=== PATIENT | male | born 2000 | race Caucasian/White ===

== ENCOUNTER 2023-04-12 13:17 | Outpatient (AMB) | payer OTHER, SELFPAY ==
--- NOTE | 2023-04-12 14:23 | AM.OFFWIN_ITS ---
Intake Vital Signs 04/12/23 14:24 Height 5 ft 8 in Weight 91.172 kg BMI 30.6 BP 110/70 Blood Pressure Location Rt brachial Position Sitting Pulse 54 Pulse Source Pulse Oximeter Temp 98.2 F Temp Source Temporal Artery Scan Pulse Oximetry (%) 98 Oxygen Delivery Method Room Air Intake Visit Reasons: EP runny nose sore throat congestion headache Intake Note: Patient here for possible sinus infection. He has been experiencing runny nose, congestion, sore throat, post nasal drip and eyes appear to be sightly red and slight headache. Patient Tobacco Use Status: Never used Tobacco Allergies amoxicillin Adverse Reaction (Mild, Verified 04/12/23 14:26) unknown Penicillins Adverse Reaction (Mild, Verified 04/12/23 14:26) unknown Do you need a note to return to daycare/school/sports/work: No HPI HPI Comments History of Present Illness Details 22-year-old male presents with dark gree n to brown nasal drainage, headaches, sinus pressure, fevers, chills, bilateral ear pain, and ulcerations throughout his mouth. He states that he has had the symptoms for over a week, has taken multiple [id number] medications with poor effect. [facility] Patient Tobacco Use Status: Never used Tobacco Review of Systems Const Details: Constitutional: No Fever, No Chills ENT/Mouth: Positive bilateral Ear Pain, No Hoarseness, positive sore throat, positive oral ulcerations Eyes: Positive bilateral eye drainage, No Eye Pain, No Swelling, No Redness, No Foreign Body Cardiovascular: No Chest Pain, No SOB Respiratory: Positive Cough, No Dyspnea Gastrointestinal: No Nausea, No Vomiting, No Diarrhea, No abdominal Pain Genitourinary: No Dysuria, No Hematuria Musculoskeletal: No joint pain, No Myalgias, No Joint Swelling Skin: No Skin lacerations, No rash Neuro: No Weakness, No Dizziness, No Headache All systems reviewed & are unremarkable except as noted in HPI and below Physical Exam Vital Signs: Last Vital Signs Temp 98.2 F 04/12/23 14:24 Pulse 54 04/12/23 14:24 BP 110/70 04/12/23 14:24 Pulse Ox 98 04/12/23 14:24 Oxygen Delivery Method Room Air 04/12/23 14:24 BMI result Body Mass Index 30.6 Appearance: Alert. Oriented X3. Mild distress secondary to pain. Eyes: Pupils equal, round and reactive to light. EOMI. Exudates noted to the upper lids, no conjunctivitis noted. ENT: Pharynx ulcerated, ulcerations throughout the buccal mucosa and uvula. Sinus tenderness noted to minimal pressure to the frontal ethmoid sinuses. Cerumen noted to both canals. Canals are intact. no mastoid tenderness noted. Green nasal drainage noted. Neck: Normal inspection. Neck supple. No cervical lymphadenopathy. No nuchal rigidity. No vertebral tenderness. CVS: Normal heart rate and rhythm. Pulses normal. Respiratory: No respiratory distress. Breath sounds normal. Abdomen: Soft and nontender. Skin: No rashes noted. Skin warm and dry. Normal skin color. Normal skin turgor. Extremities: Gait well-balanced well coordinated. Neuro: No motor deficit. No sensory deficit. 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 Patient's presentation is consistent with sinusitis and herpetic stomatitis. He has been taking medications [id number] with poor effect. He is able to eat and drink without difficulty and physical exam does not indicate mastoiditis, epiglottitis, or peritonsillar abscess. Patient does not report to be immunocompromised, and is not on any chemotherapeutic. Plan of care is to treat for sinusitis with Augmentin, as well as herpetic stomatitis with valacyclovir. Supportive measures with Tylenol, Motrin, rest, and plenty of fluids. Patient verbalized understanding of discharge instructions. Verbalized understandings of signs and symptoms indicating need for emergent intervention. Orders: Orders SARS-CoV2/FLU/RSV Today R09.89 - Other specified symptoms and signs involving the circulatory and respiratory systems AMB Rapid Strep Screen Today Z13.9 - Encounter for screening, unspecified Medications: New amoxicillin-pot clavulanate 875-125 mg 1 tab PO Q12H 10 days 20 tabs 0RF valacyclovir 1,000 mg PO TID 7 days 21 tabs 0RF Patient Instructions: You were evaluated for upper respiratory symptoms and ulcerations throughout your mouth. You are being treated for sinusitis and herpetic stomatitis. For sinusitis, take Augmentin 875 mg every 12 hours for the next 7 days. For herpetic stomatitis, take valacyclovir 1000 mg every 8 hours for the next 7 days. Alternate Tylenol 650 mg every 6 hours and Motrin 600 mg every 6 hours as needed for pain and fever management. Consider taking these medications 3 hours apart so you have pain and fever management every 3 hours. Write down what time you take these medications to prevent accidental overdose. Motrin is the same medication as Advil and ibuprofen. Tylenol is the same medication as acetaminophen. Drink plenty of fluids. Rest. Thank you for choosing this urgent care for evaluation. Please follow-up with primary care physician as needed. Return to the emergency department for any new, concerning, or worsening symptoms. Coding Level of Care Code Est Pt Level 3 (29269) Diagnoses Sinusitis J32.9 Stomatitis herpetiformis K12.0
[2023-04-12 14:24] VITALS: BP 110/70; PULSE 54; TEMP 36.8; O2SAT 98; BMI 30.6
== END 2023-04-12 14:53 | disposition home or self-care (01) ==
PROVIDERS: Visit Provider Nurse Practitioner Family
DX: J32.9 Chronic sinusitis, unspecified (principal); K12.0 Recurrent oral aphthae; J02.9 Acute pharyngitis, unspecified
CPT/HCPCS: 87880; 99051; 99213

== ENCOUNTER 2023-04-12 14:39 | Outpatient (REF) | payer OTHER, SELFPAY ==
[2023-04-12 16:06] LABS: Influenza A PCR NEGATIVE (Negative); Influenza B PCR NEGATIVE (Negative); Resp Syncy Virus RNA Qual PCR NEGATIVE (Negative); SARS COV2 PCR INHOUSE NEGATIVE (Negative)
== END 2023-04-12 14:40 | disposition home or self-care (01) ==
LOC: HO.LNP 14:39
PROVIDERS: Visit Provider Nurse Practitioner Family
DX: Z11.52 Encounter for screening for COVID-19 (principal); Z20.822 Contact with and (suspected) exposure to COVID-19; R09.89 Other specified symptoms and signs involving the circulatory and respiratory systems
CPT/HCPCS: 0241U

== ENCOUNTER → 2023-11-04 09:01 | Outpatient (BNVA) | payer SELFPAY | PROVIDERS: Visit Provider Physician Assistant Medical | DX: Z02.79 Encounter for issue of other medical certificate (principal) ==

== ENCOUNTER 2024-06-17 09:11 | Emergency (ER) | payer OTHER, SELFPAY ==
--- NOTE | ~2024-06-17 | XR_ITS ---
EXAMINATION: XR LUMBOSACRAL SPINE CLINICAL INFORMATION: back pain s/p basketball game COMPARISON: None available. TECHNIQUE: Three views of the lumbosacral spine. FINDINGS: No scoliosis. Normal lordosis. No fracture, compression deformity, or suspicious bone lesion. No subluxations. 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 Minimal disc space narrowing noted at L4-5 and L5-S1. Normal facet alignment. No soft tissue abnormalities. XR/XR lumbar spine 2-3V IMPRESSION: No acute findings lumbar spine. Electronically signed by: Salomon Gleason MD 06/17/2024 11:11 AM [facility]
[2024-06-17 09:17] VITALS: BP 132/69; PULSE 64; RESP 18; TEMP 36.3; O2SAT 98; BMI 31.3
--- NOTE | 2024-06-17 11:26 | ED_ITS ---
HPI - General Adult General Chief complaint: Back Pain/Injury Stated complaint: back pain Time Seen by Provider: 06/17/24 11:23 Source: patient Mode of arrival: ambulatory Limitations: no limitations History of Present Illness ED Provider: Ary Del Cid PA-C HPI narrative: Patient is a 23 year old assigned male at with a history of back pain presenting to the emergency department today with acute on chronic back pain. Patient states that over the last 5 years he has had intermittent back pain and has not seen a specialist. Patient states that he was playing basketball over this last weekend and has had pain in his back ever since. Patient denies any dizziness, lightheadedness, abdominal pain, nausea, vomiting, fever, chills, blurry vision, double vision, loss of vision, chest pain, difficulty breathing, shortness of breath, night sweats, pain with urination, increased urinary frequency, increased urinary urgency, blood in his urine or stool, syncope or a near syncopal episode, bowel incontinence, bladder incontinence, or any other complaints at this time. Location: back Relieving factors: none Exacerbating factors: movement Associated symptoms: denies other symptoms Treatments prior to arrival: none Related Data Previous Rx's ?Medication ?Instructions ?Recorded doxycycline monohydrate 100 mg 100 mg PO BID 10 days #20 caps 04/12/23 capsule valacyclovir 1 gram tablet 1,000 mg PO TID 7 days #21 tabs 04/12/23 cyclobenzaprine 5 mg tablet 5 mg PO TID PRN low back pain 7 06/17/24 days #21 tabs prednisone 20 mg tablet 20 mg PO DAILY 7 days #7 tabs 06/17/24 Allergies Allergy/AdvReac Type Severity Reaction Status Date / Time amoxicillin AdvReac Mild unknown Verified 06/17/24 09:19 Penicillins AdvReac Mild unknown Verified 06/17/24 09:19 Review of Systems Constitutional: Constitutional: Reports no additional constitutional complaint s, Denies chills, Denies fever(s) and Denies night sweats Eyes: Eyes: Reports no additional eye complaints, Denies blurry vision, Denies change in vision, Denies diplopia, Denies eye discharge, Denies loss of vision and Denies eye pain ENT: Denies dizziness Cardiovascular: Cardiovascular: Reports no additional cardiovascular complaints, Denies chest pain, Denies lightheadedness, Denies Loss of Consciousness and Denies dyspnea Respiratory: Respiratory: Reports no additional respiratory complaints and Denies dyspnea Gastrointestinal: Gastrointestinal: Reports no additional gastrointestinal complaints, Denies abdominal pain, Denies melena, Denies hematochezia, Denies change in bowel habits and Denies change in stool character Genitourinary: Genitourinary: Reports no additional male genitourinary complaints, Denies hematuria, Denies oliguria, Denies difficulty urinating, Denies dysuria, Denies urinary frequency, Denies urinary hesitancy, Denies urinary incontinence and Denies urinary urgency Musculoskeletal: Musculoskeletal: Reports no additional musculoskeletal complaints, Reports back pain, Denies numbness and Denies tingling Neurologic: Denies dizziness, Denies loss of vision, Denies numbness and D enies tingling Psychiatric: Psychiatric: Reports no additional psychiatric complaints Endocrine: Endocrine: Reports no additional endocrine complaints Hematologic/Lymphatic: Hematologic/Lymphatic: Reports no additional hematologic/lymphatic complaints Allergic/Immunologic: Allergic/Immunologic: Reports no additional allergic/immunologic complaints PMFSH Past Medical History Attestation statement: The following information was validated with the patient. Source: old records reviewed and nursing notes reviewed Social History Social History Patient Tobacco Use Status: Never used Tobacco Advance Directives: No Advance Directives Information Provided: Yes Physical Exam ED Vital Signs: Vital Signs - 24 hr 06/17/24 09:17 06/17/24 11:53 Temperature 97.4 F 97.4 F Pulse Rate 64 64 Respiratory Rate 18 18 Blood Pressure 132/69 132/69 Pulse Oximetry 98 98 Oxygen Delivery Method Room Air Room Air BMI result Body Mass Index 31.3 Const General: cooperative, no acute distress, alert and awake Nutritional Appearance: well nourished Orientation/consciousness: patient oriented x3 Limitations: no limitations HENMT Head: Yes normal to inspection and Yes atraumatic Ears: hearing grossly normal bilaterally and external ears normal General nose exam: Normal external nose present, no nasal discharge noted and no epistaxis Face and sinus: Yes normal facial exam, No abrasion and No laceration Mouth: Normal oral and palatal mucosa present, no drooling and no muffled voice Eyes General: appearance normal, both eyes and all related structures Periorbital: periorbital findings normal Eyelids: Yes eyelids normal Conjunctivae: conjunctivae normal Pupils: Equal, round and reactive pupils present EOM: EOMs intact bilaterally Neck Neck: Yes normal visual inspection, Yes full ROM and Yes no lymphadenopathy Chest Chest palpation & inspection: normal inspection of the chest Resp Effort & Inspection: normal respiratory effort and able to speak in complete sentences GI Inspection: Yes normal to inspection Neuro General: patient oriented x3 and moves all extremities Cranial nerves: Yes Equal, round and reactive pupils present Cognition (Neuro): normal cognition Extrem General: Yes normal to inspection, Yes full ROM and Yes capillary refill normal Psych Appearance: grossly normal Mental Status: mental status grossly normal Affect: normal affect Attitude: cooperative Thought process: Normal thought process present Thought content: Normal thought content present Insight: Good insight present (Psych) Medical Decision Making Medical Decision Making MDM Narrative: Patient is a 23 year old assigned male at with a history of back pain presenting to the emergency department today with acute on chronic back pain. Patient's physical exam was unremarkable. Patient's lumbar x-ray showed no acute process. I explained my physical exam findings as well as all test results to the patient. I answered all questions asked by the patient. I stressed the importance of the patient taking his medication as directed (either prescribed or as the over the counter packaging recommends). I stressed the importance of the patient following up with his primary care provider and a aviation technical systems specialist. I stressed the importance of the patient returning to the emergency department immediately if his symptoms were to worsen or if he were to develop any dizziness, shortness of breath, difficulty breathing, chest pain, blurry vision, loss of vision, nausea, vomiting, abdominal pain, fever, chills, back pain, or any other complaints. Patient verbalized agreement and understanding with this treatment plan and discharge. Differential Diagnosis Differential Diagnoses: The differential diagnosis associated with the presentation includes Low back pain Acute on chronic low back pain Lumbar strain Lumbar sprain Admission/Observation Consideration of admission/observation: Escalation of care including admission/observation considered Patient would have been admitted to the hospital had his work up had any findings where hospital admission was appropriate and his clinical presentation warranted hospital admission. Independent Interpretation I performed an independent interpretation of an: Plain X-Ray Interpretation: My interpretation is in agreement with the radiologist's impression of this imaging study. EXAMINATION: XR LUMBOSACRAL SPINE CLINICAL INFORMATION: back pain s/p basketball game COMPARISON: None available. TECHNIQUE: Three views of the lumbosacral spine. FINDINGS: No scoliosis. Normal lordosis. No fracture, compression deformity, or suspicious bone lesion. No subluxations. 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 Minimal disc space narrowing noted at L4-5 and L5-S1. Normal facet alignment. No soft tissue abnormalities. XR/XR lumbar spine 2-3V IMPRESSION: No acute findings lumbar spine. Electronically signed by: Salomon Gleason MD 06/17/2024 11:11 AM EST Dictated By: Salomon Gleason MD Signed By: Electronically signed by Salomon Gleason MD 06/17/24 1111 Radiology Impression Discussion of test interpretation with radiology: I have reviewed the radiologist's reading. Prescription Management I considered prescription management with: Pain Medication (patient prescribed pain medication) Discharge Plan Discharge Clinical Impression: Low back pain Patient Disposition: Home, Self-Care Instructions: Chronic Back Pain (DC) Additional Instructions: Follow up with your primary care provider and a aviation technical systems specialist. Return to the emergency department immediately if your symptoms worsen or if you develop any dizziness, shortness of breath, difficulty breathing, chest pain, blurry vision, loss of vision, nausea, vomiting, abdominal pain, fever, chills, back pain, or any other complaints. Prescriptions: New prednisone 20 mg tablet 20 mg PO DAILY 7 Days Qty: 7 0RF cyclobenzaprine 5 mg tablet 5 mg PO TID PRN (Reason: low back pain) 7 Days Qty: 21 0RF No Action valacyclovir 1 gram tablet 1,000 mg PO TID 7 Days Qty: 21 0RF doxycycline monohydrate 100 mg capsule 100 mg PO BID 10 Days Qty: 20 0RF Referrals: [facility] [place] [facility] [Provider Group] (Call to establish and follow up with a primary care provider. If you already have a primary care provider, please follow up with them.) [facility] [Provider Group] (Call to establish and follow up with a primary care provider. If you already have a primary care provider, please follow up with them.) [facility] [place] Primary [facility] [Provider Group] (Call to establish and follow up with a primary care provider. If you already have a primary care provider, please follow up with them.) [facility] [Provider Group] (Call to establish and follow up with a aviation technical systems specialist.) [facility] [Provider Group] (Call to establish and follow up with a aviation technical systems specialist.) Stand Alone Forms: Work/School Release Interventions: ED Discharge Assessment Last Done: 06/17/24 11:53 Discharge Date/Time: 06/17/24 11:54 Print Language: Sinhala
[2024-06-17 11:53] VITALS: BP 132/69; PULSE 64; RESP 18; TEMP 36.3; O2SAT 98
--- OUTSIDE RECORDS SUMMARY | 2024-06-17 15:33 | XMS_ITS | Data Portability ---
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 riky Not available 02/18/2022 16:41:25 07/17/2022 07/17/2022 This service was provided using telemedicine. Patient consented to video & audio visit Patient was located in the [facility]. Provider was located in the office. No other persons participated in the telemedicine visit except for the patient unless otherwise indicated here. {{}} Total time of visit was 20 minutes. riky Not available 07/17/2022 18:10:49 Plan of Treatment Reminders Order Date Submit Date Provider Last Modified By Organization Details Last Modified Time Details Appointments URGENT 2024 09:00A M Jose Manuel Pierce MD Not available Not available Not available Lab RPR (rapid plasma reagin ), titer, serum 2021 [facility], [address], [address], [place], [address], 03/03/2022 12:25:43 HIV 1+2 AB + HIV 1 p24 Ag, qualit ative immuno assay, serum 2021 [facility], [address], [address], [place], [address], 03/02/2022 10:39:55 HBsAg (hepat itis B surfac e Ag), serum 2021 [facility], [address], [address], [place], [address], 03/03/2022 10:42:39 hbcab (hepat itis B core Ab) igm, serum 2021 [facility], [address], [address], [place], [address], 03/03/2022 12:25:42 CT + NG DNA, PCR, urine 2021 [facility], [address], [address], [place], [address], 03/05/2022 11:26:34 hepati tis C virus Ab, serum 2021 [facility], [address], [address], [place], [address], 03/03/2022 12:25:41 lipid panel, serum 2021 [facility], [address], [address], [place], [address], 03/01/2022 17:58:34 CBC w/ auto diff 2021 [facility], [address], [address], [place], [address], 03/01/2022 15:46:25 CMP, serum or plasma 2021 [facility], [address], [address], [place], [address], 03/01/2022 17:58:33 TSH, serum or plasma 2021 [facility], [address], [address], [place], [address], 03/01/2022 18:03:45 CBC w/ auto diff 2022 023 [facility], [address], [place], [address], 06/05/2022 20:35:02 Referral mental health counse chemo referr al 2021 022 [email or web address] Not available 02/19/2022 08:40:41 physic al therap ist referr al - Please see for should er painTo eric # of Visits : ` 2023 024 [email or web address] Not available 03/04/2024 09:32:22 Procedures None record ed. Surgeries None record ed. Imaging XR, should er 2023 024 [email or web address] [facility], [address] [place], [address], 09/06/2023 09:52:15 Medication Orders sertra line 50 mg tablet [id number] [place] [address] [id number], [address] [place], [place], [id number], 09/06/2023 09:29:50 meloxi cam 15 mg tablet 2023 024 [id number], [address], [place], [id number], 09/06/2023 09:48:45 Patient TargetsNo targets recorded. Patient Instructions Encounter Date Encounter Id Patient Instructions Last Modified By Organization Details Last Modified Time 05/31/2020 [id number] back care and preventing injuries: care instructions [email or web address] Not available 05/31/2020 15:12:02 low back pain: exercises [email or web address] Not available 05/31/2020 15:12:02 06/05/2022 [id number] Well Visit, Ages 18 to 65: Care Instructions [email or web address] Not available 06/05/2022 14:31:03 starting a weigh t loss plan: care instructions [email or web address] Not available 06/05/2022 14:31:03 09/06/2023 [id number] shoulder bursitis: exercises [email or web address] Not available 09/06/2023 09:48:39 rotator cuff: exercises [email or web address] Not available 09/06/2023 09:48:39 rotator cuff injury: care instructions [email or web address] Not available 09/06/2023 09:48:39 Reason for Referral Mental Health Counselor Refe rral for Dysthymia Referring Physician: Gonzalo Amezquita [facility], Encounter Date: 02/18/2022 Physical Therapist Referral for Injury of tendon of the rotator cuff of shoulder Please see for shoulder painTotal # of Visits: ` Referring Physician: Gonzalo Amezquita [facility], Encounter Date: 09/06/2023 Results Created Date Observation Date Name Description Value Unit Range Abnormal Flag Note LastModifiedBy Organization Detail LastModifiedTime 03/01/2003/01/2022 COMPL ETE CBC WITH DIFF results Test not perfo rmed, speci men clott ed Not Available [facility] [address] [place], [address], 03/01/2022 15:46:25 03/01/20 22 03/01/2022 COMPR EHENS TIESHA METAB OLIC PANL glucose 91 mg/dL (70-99 ) Not Available [facility] [address] [place], [address], 03/01/2022 17:58:33 03/01/2003/01/2022 COMPR EHENS TIESHA METAB OLIC PANL BUN 12 mg/dL (6-20) Not Available [facility] [address] [place], [address], 03/01/2022 17:58:33 03/01/20 22 03/01/2022 COMPR EHENS TIESHA METAB OLIC PANL creatinine 1.1 mg/dL (0.7-1 .2) Not Available [facility] [address] [place], [address], 03/01/2022 17:58:33 03/01/20 03/01/2022 COMPR EHENS TIESHA METAB OLIC PANL sodium 141 mmol/ L (133-1 45) Not Available [facility] [address] [place], [address], 03/01/2022 17:58:33 03/01/20 22 03/01/2022 COMPR EHENS TIESHA METAB OLIC PANL potassium 4.7 mmol/ L (3.6-5 .2) Not Available [facility] [address] [place], [address], 03/01/2022 17:58:33 03/01/20 22 03/01/2022 COMPR EHENS TIESHA METAB OLIC PANL chloride 104 mmol/ L (98-10 7) Not Available [facility] [address] [place], [address], 03/01/2022 17:58:33 03/01/20 22 03/01/2022 COMPR EHENS TIESHA METAB OLIC PANL bicarbonate 28 mmol/ L (22-29 ) Not Available [facility] [address] [place], [address], 03/01/2022 17:58:33 03/01/20 22 03/01/2022 COMPR EHENS TIESHA METAB OLIC PANL anion gap 9 (4-17) Not Available [facility] [address] [place], [address], 03/01/2022 17:58:33 03/01/20 22 03/01/2022 COMPR EHENS TIESHA METAB OLIC PANL albumin 5.1 gm/dL (3.4-4 .8) high Not Available [facility] [address] [place], [address], 03/01/2022 17:58:33 03/01/20 22 03/01/2022 COMPR EHENS TIESHA METAB OLIC PANL calcium 10.3 mg/dL (8.6-1 0.5) Not Available [facility] [address] [place], [address], 03/01/2022 17:58:33 03/01/20 22 03/01/2022 COMPR EHENS TIESHA METAB OLIC PANL bilirubin,to eric 0.7 mg/dL (0-1.2 ) Not Available [facility] [address] [place], [address], 03/01/2022 17:58:33 03/01/20 22 03/01/2022 COMPR EHENS TIESHA METAB OLIC PANL total protein 7.4 gm/dL (6.2-8 .2) Not Available [facility] [address] [place], [address], 03/01/2022 17:58:33 03/01/20 22 03/01/2022 COMPR EHENS TIESHA METAB OLIC PANL Ag ratio 2.2 Not Available [facility] [address] [place], [address], 03/01/2022 17:58:33 03/01/20 22 03/01/2022 COMPR EHENS TIESHA METAB OLIC PANL AST 25 U/L (0-40) Not Available [facility] [address] [place], [address], 03/01/2022 17:58:33 03/01/20 22 03/01/2022 COMPR EHENS TIESHA METAB OLIC PANL alk phos 80 U/L (40-12 9) Not Available [facility] [address] [place], [address], 03/01/2022 17:58:33 03/01/20 22 03/01/2022 COMPR EHENS TIESHA METAB OLIC PANL ALT 35 U/L (0-41) Not Available [facility] [address] [place], [address], 03/01/2022 17:58:33 03/01/20 22 03/01/2022 COMPR EHENS TIESHA METAB OLIC PANL estimated GFR creatinine 101 mL/mi n/1.7 3_M2 Creat inine based estim ated glome rular filtr ation (eGFR ) in adult s is calcu lated using the Natio nal Kidne y Found ation recom hamilton d 2020 CKD-E PI equat ion. Estim ates GFR from serum creat inine , age and sex. Not Available [facility] [address] [place], [address], 03/01/2022 17:58:33 03/01/20 22 03/01/2022 LIPID PANEL cholesterol, total 175 mg/dL (<200) Not Available [facility] [address] [place], [address], 03/01/2022 17:58:34 03/01/20 22 03/01/2022 LIPID PANEL triglyceride 148 mg/dL (<150) Not Available [facility] [address] [place], [address], 03/01/2022 17:58:34 03/01/20 22 03/01/2022 LIPID PANEL HDL chol 36 mg/dL (>39) low Not Available [facility] [address] [place], [address], 03/01/2022 17:58:34 03/01/20 22 03/01/2022 LIPID PANEL LDL cholesterol, calculated 109 mg/dL (0-130 ) Not Available [facility] [address] [place], [address], 03/01/2022 17:58:34 03/01/20 22 03/01/2022 LIPID PANEL non HDL cholesterol (calc) 139 mg/dL (<160) Not Available [facility] [address] [place], [address], 03/01/2022 17:58:34 03/01/20 22 03/01/2022 TSH WITH REFLE X TO FT4 TSH 1.19 uIU/m L (0.4-4 .2) Not Available [facility] [address] [place], [address], 03/01/2022 18:03:45 03/01/2003/02/2022 HIV AB-AG 4TH GENER ATION result 4TH gen HIV Ab-Ag (neg) normal NEGAT TIESHA Negat tiesha for antib odies to HIV 1 and HIV 2 and P24 antig en. Refer ence range : Negat tiesha Addit ional note: Writt en patie nt autho rizat ion is requi red for each separ ate relea se of this test resul t. This test was perfo rmed on the Abbot t Archi tect immun oassa y syste m. Not Available [facility] [address] [place], [address], 03/02/2022 10:39:55 03/01/2003/03/2022 HEP. B SURF. AG hep. B surf. Ag (neg) normal NEGAT TIESHA Refer ence range : Negat tiesha This test was perfo rmed on the Abbot t Archi tect immun oassa y syste m. Not Available [facility] [address], [place], [address], 03/03/2022 10:42:39 03/01/2003/03/2022 ANTI- HEPAT ITIS C anti-hepatit is C (neg) normal NEGAT TIESHA Refer ence range : Negat tiesha This test was perfo rmed on the Abbot t Archi tect immun oassa y syste m. Not Available [facility] [address] [place], [address], 03/03/2022 12:25:41 03/01/2003/03/2022 HEP.B CORE IGM hep.B core IgM NEGAT TIESHA Refer ence range : Negat tiesha This test was perfo rmed on the Abbot t Archi tect immun oassa y syste m. Not Available [facility] [address] [place], [address], 03/03/2022 12:25:42 03/01/2003/03/2022 SYPHI LIS TESTI NG syphilis screen by maria eugenia (neg) normal NEGAT TIESHA Refer ence range : Negat tiesha This test was perfo rmed on the Abbot t Archi tect immun oassa y syste m. Not Available [facility] [address] [place], [address], 03/03/2022 12:25:43 03/01/20 22 03/03/2022 SYPHI LIS TESTI NG RPR titer result NOT INDICA GREER Not Available [facility] [address] [place], [address], 03/03/2022 12:25:43 03/01/20 22 03/03/2022 SYPHI LIS TESTI NG tppa result NOT INDICA GREER Not Available [facility] [address] [place], [address], 03/03/2022 12:25:43 03/01/20 22 03/03/2022 SYPHI LIS TESTI NG syphilis interpretati on Indic ative of the absen ce of infec tion with Trepo nemal palli dum. Test may be negat tiesha in cases of incub ating or early prima ry syphi lis. Consi phi repea t testi ng in sever al weeks if clini mando suspi cion is high. Not Available [facility] [address] [place], [address], 03/03/2022 12:25:43 03/04/20 22 03/05/2022 URINE CHLAM YDIA GC AMP PROBE urine chlamydia amp probe (neg) NEGAT TIESHA No Chlam ydia Trach omati s RNA detec greer in this patie nt's sampl e (REFE RENCE RANGE /NORM AL VALUE : NOT DETEC GREER) Note: This test uses trans cript ion- media greer ampli ficat ion metho d to detec t rRNA from C. Trach omati s Not Available [facility] [address] [place], [address], 03/05/2022 11:26:34 03/04/20 22 03/05/2022 URINE CHLAM YDIA GC AMP PROBE urine GC amp probe (neg) NEGAT TIESHA No Neiss eria Gonor rhoea e RNA detec greer in this patie nt's sampl e (REFE RENCE RANGE /NORM AL VALUE : NOT DETEC GREER) NOTE: This test uses trans cript ion-m ediat ed ampli ficat ion metho d to detec t rRNA from N.Jose J orrho eae. A negat tiesha resul t does not precl ude infec tion. In the case of a negat tiesha urine resul t, testi ng of an endoc ervic al(fe male) or ureth ral (male ) speci men is recom hamilton d if there is high clini mando suspi cion of infec tion. Due to very high sensi tivit y of Nucle ic Acid Ampli ficat ion Test, false posit tiesha resul ts may occur . There fore, speci men handl ing is extre fabian impor tant. In patie nts in whom the disea se is unlik kadi, addit ional sampl e for testi ng shoul d be consi dered after an initi al posit tiesha resul t. The perfo rmanc e denilson cteri stics of this test have not been evalu ated in child karey. The Aptim a Combo 2 assay is not inten ded for the evalu ation of suspe cted sexua l abuse or for other medic o-leg al indic ation s. The order ing provi phi shoul d asses s if the patie nt had conse nsual sex witho ut risk of sexua l abuse . [facility]u lt [facility] if neede d. Conta ct phone numbe r . Thera peuti c failu re or succe ss canno t be deter mined with the Aptim a Combo 2 assay since nucle ic acid may persi st follo wing appro priat e antim icrob ial thera py. The Cente rs for Disea se Contr ol and Preve ntion ([facility]) recom mends confi rmato ry retes ting using cultu re or a diffe rent nucle ic acid ampli ficat ion test when posit tiesha resul ts occur , if indic ated. Not Available [facility] [address], [place], [place], [address], 03/05/2022 11:26:34 06/05/19 23 06/05/2022 COMPL ETE CBC WITH DIFF WBC 7.1 K/mm3 (4.0-1 1.0) Not Available [facility] [address] [place], [address], 06/05/2022 20:35:02 06/05/19 23 06/05/2022 COMPL ETE CBC WITH DIFF RBC 5.56 M/mm3 (4.70- 6.10) Not Available [facility] [address] [place], [address], 06/05/2022 20:35:02 06/05/19 23 06/05/2022 COMPL ETE CBC WITH DIFF HGB 15.5 gm/dL (13.7- 17.1) Not Available [facility] [address] [place], [address], 06/05/2022 20:35:02 06/05/19 23 06/05/2022 COMPL ETE CBC WITH DIFF HCT 47.6 % (40.5- 50.0) Not Available [facility] [address] [place], [address], 06/05/2022 20:35:02 06/05/19 23 06/05/2022 COMPL ETE CBC WITH DIFF MCV 85.6 fL (80.0- 94.0) Not Available [facility] [address], [address], 06/05/2022 20:35:02 06/05/19 23 06/05/2022 COMPL ETE CBC WITH DIFF MCH 27.9 pg (27.0- 34.0) Not Available [facility] [address] [place], [address], 06/05/2022 20:35:02 06/05/19 23 06/05/2022 COMPL ETE CBC WITH DIFF MCHC 32.6 g/dL (33.0- 37.0) low Not Available [facility] [address] [place], [address], 06/05/2022 20:35:02 06/05/19 23 06/05/2022 COMPL ETE CBC WITH DIFF plt 294 K/mm3 (150-4 60) Not Available [facility] [address] [place], [address], 06/05/2022 20:35:02 06/05/19 23 06/05/2022 COMPL ETE CBC WITH DIFF RDW-SD 38.2 fL (<47.0 ) Not Available [facility] [address] [place], [address], 06/05/2022 20:35:02 06/05/19 23 06/05/2022 COMPL ETE CBC WITH DIFF MPV 10.9 fL (9.4-1 2.4) Not Available [facility] [address] [place], [address], 06/05/2022 20:35:02 06/05/19 23 06/05/2022 COMPL ETE CBC WITH DIFF automated NRBC 0.0 #/100 _WBC' s Not Available [facility] [address] [place], [address], 06/05/2022 20:35:02 06/05/19 23 06/05/2022 COMPL ETE CBC WITH DIFF abs. NRBC 0.0 K/mm3 Not Available [facility] [address] [place], [address], 06/05/2022 20:35:02 06/05/19 23 06/05/2022 COMPL ETE CBC WITH DIFF neut # 3.9 K/mm3 (1.3-7 .0) Not Available [facility] [address] [place], [address], 06/05/2022 20:35:02 06/05/19 23 06/05/2022 COMPL ETE CBC WITH DIFF lymph # 2.5 K/mm3 (0.8-3 .1) Not Available [facility] [address] [place], [address], 06/05/2022 20:35:02 06/05/19 23 06/05/2022 COMPL ETE CBC WITH DIFF mono# 0.6 K/mm3 (0.4-1 .3) Not Available [facility] [address] [place], [address], 06/05/2022 20:35:02 06/05/19 23 06/05/2022 COMPL ETE CBC WITH DIFF eo # 0.1 K/mm3 (0.0-0 .4) Not Available [facility] [address] [place], [address], 06/05/2022 20:35:02 06/05/19 23 06/05/2022 COMPL ETE CBC WITH DIFF baso # 0.0 K/mm3 (0.0-0 .1) Not Available [facility] [address] [place], [address], 06/05/2022 20:35:02 06/05/19 23 06/05/2022 COMPL ETE CBC WITH DIFF abs. imm gran 0.1 K/mm3 Not Available [facility] [address] [place], [address], 06/05/2022 20:35:02 06/05/19 23 06/05/2022 COMPL ETE CBC WITH DIFF neut 54.8 % (44-76 ) Not Available [facility] [address] [place], [address], 06/05/2022 20:35:02 06/05/19 23 06/05/2022 COMPL ETE CBC WITH DIFF lymph 34.5 % (15-43 ) Not Available [facility] [address] [place], [address], 06/05/2022 20:35:02 06/05/19 23 06/05/2022 COMPL ETE CBC WITH DIFF monocyte 8.7 % (4.5-1 0.5) Not Available [facility] [address] [place], [address], 06/05/2022 20:35:02 06/05/19 23 06/05/2022 COMPL ETE CBC WITH DIFF eo 0.8 % (0-6) Not Available [facility] [address] [place], [address], 06/05/2022 20:35:02 06/05/19 23 06/05/2022 COMPL ETE CBC WITH DIFF baso 0.4 % (0-2) Not Available [facility] [address] [place], [address], 06/05/2022 20:35:02 06/05/19 23 06/05/2022 COMPL ETE CBC WITH DIFF imm gran 0.8 % Not Available [facility] [address] [place], [address], 06/05/2022 20:35:02 Result Notes None recorded. Problems Name Problem SNOMED Code Status Onset Date Resolution Date Notes Provider Name and Address Organization Details Recorded Time Radiolog y result abnormal [id number] Completed 201211/30/2013 IMPRESSI ON: ANKLE WITH POSSIBLE OLD SALTER-H ARRIS TYPE 2 FRACTURE , NOT HEALED CORRECTL Y; RECORDED 06/05/19 13 2:21PM BY JAYANT ACEVES MA, ANNOTATI ON/ADDEN DUM Not Available [facility] 4 14:47:53 Acute pharyngi tis [id number] Completed 201311/30/2013 IMPRESSI ON: RAPID STREP NEG.; RECORDED 10/07/19 14 1:38PM BY JT PERDOMOATI ON/ADDEN DUM Not Available [facility] 4 14:47:53 Allergic rhinitis [id number] Completed 200911/30/2013 RECORDED 09/05/19 10 10:54AM BY HALEY PAINTER MA, ANNOTATI ON/ADDEN DUM [place] - [facility] 6 09:30:44 Allergic rhinitis [id number] Active 2013 [place] [facility] 6 09:30:44 Joint pain in ankle and foot Completed 201211/30/2013 IMPRESSI ON: CONTUSIO N; RECORDED 06/05/19 13 2:21PM BY JAYANT ACEVES MA, ANNOTATI ON/ADDEN DUM Not Available [facility] 4 14:47:53 Counseli ng Completed 201111/30/2013 RECORDED 12/16/19 12 2:14PM BY HALEY PAINTER MA, CARMEN ON/ADDEN DUM Not Available [facility] 4 14:47:53 Dysphagi a [id number] Completed 201111/30/2013 RECORDED 12/16/19 12 2:14PM BY HALEY PAINTER MA, ANNOTATI ON/ADDEN DUM Not Available [facility] 4 14:47:53 Follow-u p encounte r Completed 201111/30/2013 RECORDED 03/03/20 12 2:43PM BY CHRISTOPHER ALVA MA, ANNOTATI ON/ADDEN DUM Not Available [facility] 4 14:47:53 Administ ration of viral vaccine Completed 201311/30/2013 RECORDED 08/11/19 14 9:34AM BY ANN-MARIE LOERA MA, ANNOTATI ON/ADDEN DUM Not Available [facility] 4 14:47:53 Active or passive immuniza tion Completed 201211/30/2013 RECORDED 12/24/19 13 1:28PM BY CARLTON WORKMAN MD, WELL CHILD VISITS Not Available [facility] 4 14:47:53 Administ ration of bacteria l and viral vaccine Completed 200911/30/2013 RECORDED 09/05/19 10 11:24AM BY CARLTON WORKMAN MD, WELL CHILD VISITS Not Available [facility] 4 14:47:54 Varicell a vaccinat ion Completed 200911/30/2013 RECORDED 10/03/19 10 3:03PM BY JANELLE IBARRA, NURSE VISIT Not Available [facility] 4 14:47:54 Patient status finding [id number] Completed 201311/30/2013 RECORDED 08/11/19 14 9:34AM BY ANN-MARIE LOERA MA, ANNOTATI ON/ADDEN DUM Not Available [facility] 4 14:47:54 Well child [id number] Completed 201111/30/2013 RECORDED 12/16/19 12 2:14PM BY HALEY PAINTER MA, ANNOTATI ON/ADDEN DUM Not Available [facility] 4 14:47:54 Risk of exposure to communic able disease [id number] Completed 201111/30/2013 RECORDED 03/03/20 12 2:43PM BY CHRISTOPHER ALVA MA, ANNOTATI ON/ADDEN DUM Not Available [facility] 4 14:47:54 Tic disorder [id number] Active 2013 [place] [facility] 6 09:30:41 Acute upper respirat ory infectio n [id number] Completed 201311/30/2013 IMPRESSI ON: ENCOURAG E REST AND HYDRATIO N. RTC IF PERSISTE NT OR WORSENIN G SYMPTOMS .; RECORDED 10/07/19 14 1:38PM BY JT PERDOMOATI ON/ADDEN DUM Not Available [facility] 4 14:47:54 Radiolog y result abnormal [id number] Completed 201212/27/2013 IMPRESSI ON: ANKLE WITH POSSIBLE OLD SALTER-H ARRIS TYPE 2 FRACTURE , NOT HEALED CORRECTL Y; RECORDED 06/05/19 13 2:21PM BY JAYANT ACEVES MA, ANNOTATI ON/ADDEN DUM Not Available [facility] 4 05:36:24 Acute pharyngi tis [id number] Completed 201312/27/2013 IMPRESSI ON: RAPID STREP NEG.; RECORDED 10/07/19 14 1:38PM BY HEATH SCHULTZK I, ANNOTATI ON/ADDEN DUM Not Available [facility] 4 05:36:24 Allergic rhinitis [id number] Completed 200912/27/2013 RECORDED 09/05/19 10 10:54AM BY HALEY PAINTER MA, ANNOTATI ON/ADDEN DUM [place] [facility] 6 09:30:44 Counseli ng Completed 201112/27/2013 RECORDED 12/16/19 12 2:14PM BY HALEY PAINTER MA, ANNOTATI ON/ADDEN DUM Not Available [facility] 4 05:36:24 Dysphagi a [id number] Completed 201112/27/2013 RECORDED 12/16/19 12 2:14PM BY HALEY PAINTER MA, ANNOTATI ON/ADDEN DUM Not Available [facility] 4 05:36:24 Follow-u p encounte r Completed 201112/27/2013 RECORDED 03/03/20 12 2:43PM BY CHRISTOPHER ALVA MA, ANNOTATI ON/ADDEN DUM Not Available [facility] 4 05:36:24 Administ ration of viral vaccine Completed 201312/27/2013 RECORDED 08/11/19 14 9:34AM BY ANN-MARIE LOERA MA, ANNOTATI ON/ADDEN DUM Not Available [facility] 4 05:36:24 Active or passive immuniza tion Completed 201212/27/2013 RECORDED 12/24/19 13 1:28PM BY CARLTON WORKMAN MD, WELL CHILD VISITS Not Available [facility] 4 05:36:25 Administ ration of bacteria l and viral vaccine Completed 200912/27/2013 RECORDED 09/05/19 10 11:24AM BY CARLTON WORKMAN MD, WELL CHILD VISITS Not Available [facility] 4 05:36:25 Varicell a vaccinat ion Completed 200912/27/2013 RECORDED 10/03/19 10 3:03PM BY JANELEL IBARRA, NURSE VISIT Not Available [facility] 4 05:36:25 Patient status finding [id number] Completed 201312/27/2013 RECORDED 08/11/19 14 9:34AM BY ANN-MARIE LOERA MA, ANNOTATI ON/ADDEN DUM Not Available [facility] 4 05:36:25 Risk of exposure to communic able disease [id number] Completed 201112/27/2013 RECORDED 03/03/20 12 2:43PM BY CHRISTOPHER ALVA MA, ANNOTATI ON/ADDEN DUM Not Available [facility] 4 05:36:25 Acute upper respirat ory infectio n [id number] Completed 201312/27/2013 IMPRESSI ON: ENCOURAG E REST AND HYDRATIO N. RTC IF PERSISTE NT OR WORSENIN G SYMPTOMS .; RECORDED 10/07/19 14 1:38PM BY HEATH OLIVO I, ANNOTATI ON/ADDEN DUM Not Available [facility] 4 05:36:25 Sprain of ankle [id number] Completed 09/06/2023 Gonzalo Amezquita MD [address] [address], [place], [id number] , [facility] 4 09:48:29 Elevated blood-pr essure reading without diagnosi s of hyperten gladys [id number] Completed 202209/06/2023 Gonzalo Amezquita MD [address] [address], [place], [phone] , [facility] 4 09:48:23 Problem Notes None recorded. Procedures Surgical History Date Name Laterality Status Provider Name and Address Organization Details Recorded Time No surg proc w/in 30 days completed Haley Fields MA [facility] 09/02/2019 14:30:57 Imaging Results None recorded. Procedure Notes None recorded. Medical Equipment None Reported. Allergies Allergen ID Allergen Name Allergen Category Reaction Reaction Severity Criticality Documentation Date Start Date Code Code System Note Provider Name and Address Organization Details Recorded Time 91760 amoxicill in medicatio n rash Not available Not available 01/09/2017 723 RxNorm WILBERT Zepeda, [facility] 7 10:20:44 6493 Product containin g penicilli n and antibioti c (product) medicatio n rash Not available Not available 11/30/20132006 74775 [facility] 10:[facility] Medications Name Sig Start Date Stop Date Status Note LastModified by Organization Details LastModified Time cyclobenz aprine 10 mg tablet TK 1 T PO BID FOR 10 DAYS PRF SPASM 05/01 completed Not Available Not Available Not Available Zyrtec 1 mg/mL oral syrup AT BEDTIME 10/02 completed RECORDED 10/03/19 11 3:11PM BY HALEY PAINTER MA, WELL CHILD VISITS; Not Available Not Available Not Available cetirizin e 10 mg tablet Take 1 tablet every day by oral route as needed. 05/01 completed Not Available Not Available Not Available ibuprofen 800 mg tablet THREE TIMES DAILY 04/02 completed RECORDED 06/05/19 13 2:20PM BY AYUSH JEFFRIES, MEDICATI ON AUTO-ANTOINE CTIVATIO N; Not Available Not Available Not Available valacyclo vir 1 gram tablet TAKE 1 TABLET BY MOUTH THREE TIMES DAILY FOR 7 DAYS active Not Available Not Available No t Available meloxicam 15 mg tablet TAKE 1 TABLET BY MOUTH DAILY WITH A MEAL active Not Available Not Available No t Available sertralin e 100 mg tablet TAKE 1 TABLET BY MOUTH EVERY DAY 09/05 completed Not Available Not Available Not Available permethri n 5 % topical cream ONE TIME LEAVE ON FOR 8 TO 14HOURS FOR SCABIES 06/05 completed RECORDED 06/05/19 13 2:26PM BY JAYANT ACEVES MA, OFFICE VISIT; Not Available Not Available Not Available doxycycli ne monohydra te 100 mg capsule TAKE 1 CAPSULE BY MOUTH TWICE DAILY FOR 10 DAYS 09/05 completed Not Available Not Available Not Available oseltamiv ir 75 mg capsule 09/01 completed Not Available Not Available Not Available olopatadi ne 0.1 % eye drops TID, TO AFFECTED EYE 09/22 completed RECORDED 09/23/19 10 9:38AM BY JANELLE IBARRA, ANNOTATI ON/ADDEN DUM; Not Available Not Available Not Available fluoxetin e 10 mg capsule TAKE 1 CAPSULE BY MOUTH EVERY DAY 09/05 completed Not Available Not Available Not Available azithromy apolinar 200 mg/5 mL oral suspensio n DAILY 12/05 completed RECORDED 12/13/19 11 9:54AM BY CAROLE GILMORE PA-C, MEDICATI ON AUTO-ANTOINE CTIVATIO N; Not Available Not Available Not Available fluoxetin e 20 mg capsule TAKE 1 CAPSULE BY MOUTH DAILY active Not Available Not Available No t Available sertralin e 50 mg tablet TAKE 1 TABLET BY MOUTH EVERY DAY 09/05 completed Not Available Not Available Not Available naproxen 500 mg tablet TAKE 1 TABLET BY MOUTH TWICE DAILY FOR 14 DAYS 02/18 completed Not Available Not Available Not Available azithromy apolinar 500 mg tablet 09/01 completed Not Available Not Available Not Available cyclobenz aprine 5 mg tablet TAKE 1 TABLET BY MOUTH THREE TIMES DAILY FOR 5 DAYS 05/31 completed Not Available Not Available Not Available escitalop brittany 5 mg tablet Take 1 tablet every day by oral route for 60 days. 09/05 completed Not Available Not Available Not Available multivita min chewable tablet Take 1 tablet every day by oral route. 01/08 completed Not Available Not Available Not Available Vitals Date Recorded Body height Body mass index (BMI) Body mass index (BMI) Percentile per age and sex Body weight Heart rate Oxygen saturation Oxygen saturation in Arterial blood by Pulse oximetry Body temperature Provider Name and Address Organization Details Last Updated DateTime 1 172.72 cm 30.1 kg/m2 93 % 38800.2 9 g 83 /min 98 % 98 % 98.78 [degF] Sadaf Packer MA [facility] 1 08:57:08 Date Recorded Systolic blood pressure Diastolic blood pressure Provider Name and Address Organization Details Last Updated DateTime 05/31/2020 119 mm[Hg] 73 mm[Hg] Ruth Carcamo MA [facility] 05/31/2020 11:21:51 Date Recorded Body height Body mass index (BMI) Body weight Heart rate Oxygen saturation Oxygen saturation in Arterial blood by Pulse oximetry Body temperature Systolic blood pressure Diastolic blood pressure Systolic blood pressure Diastolic blood pressure Provider Name and Address Organization Details Last Updated DateTime 3 172.72 cm 30.7 kg/m2 58306.6 6 g 62 /min 98 % 98 % 98.7 [degF] 145 mm[Hg] 69 mm[Hg] 146 mm[Hg] 70 mm[Hg] Haley juarez MA [facility] 3 14:00:27 Date Recorded Systolic blood pressure Diastolic blood pressure Provider Name and Address Organization Details Last Updated DateTime 06/05/2022 130 mm[Hg] 88 mm[Hg] Phillip Weaver MA [facility] 06/05/2022 14:31:03 Date Recorded Body height Body mass index (BMI) Body weight Oxygen saturation Oxygen saturation in Arterial blood by Pulse oximetry Heart rate Body temperature Systolic blood pressure Diastolic blood pressure Provider Name and Address Organization Details Last Updated DateTime 4 172.72 cm 30.6 kg/m2 89307.8 7 g 98 % 98 % 85 /min 98.3 [degF] 123 mm[Hg] 70 mm[Hg] Ruth Carcamo MA [facility] 4 09:28:57 Social History Question Answer Notes LastModified by Organizat ion Details LastModified Time Tobacco Smoking Status [facility] 14:48:50 Able To Swim? Yes Informa tion not available 01/09/2016 Do You Have An Advance Directive? No Information not available 05/01/2020 What Is Your Level Of Alcohol Consumption? Occasional Information not available 06/05/2022 Is Blood Transfusion Acceptable In An Emergency? Yes Information not available 01/03/2015 Are You Or Have You Been Involved With Bullying? No [email or web address] Information not available 05/01/2020 What Is Your Level Of Caffeine Consumption? Occasional Diet Soda Information not available 06/05/2022 How Much Tobacco Do You Chew? None Information not available 01/03/2015 In The 14 Days Before Symptom Onset, Have You Had Close Contact With A Laboratory-confi rmed COVID-19 While That Case Was Ill? Yes [email or web address] Information not available 05/01/2020 In The 14 Days Before Symptom Onset, Have You Had Close Contact With A Person Who Is Under Investigation For COVID-19 While That Person Was Ill? Yes [email or web address] Information not available 05/01/2020 Have You Been To An Area Known To Be High Risk For COVID-19? Yes [email or web address] Information not available 05/01/2020 Are You Currently Employed? Yes Work And Student Information not available 01/09/2016 What Type Of Diet Are You Following? REGULAR Information not available 12/28/2013 Which Illicit Or Recreational Drugs Have You Used? Marijuana Information not available 06/05/2022 Do You Or Have You Ever Used E-cigarettes Or Vape? Never Used Electronic Cigarettes [email or web address] Information not available 05/01/2020 What Is Your Occupation? [employer] [email or web address] Information not available 05/01/2020 Have There Been Any Changes To Your Family Or Social Situation? Yes [email or web address] Information not available 05/01/2020 Are There Any Guns Present In Your Home? No [email or web address] Information not available 05/01/2020 What Is Your Home Situation? Mother Split Custody [email or web address] Information not available 05/01/2020 Live Alone Or With Others? With Others Mom (Linette)and 1 Sibling (sees Dad; Split Custody) Information not available 12/28/2013 Do You Take Precautions To Prevent Distracted Driving? Yes Information not available 05/01/2020 How Often Do You Need To Have Someone Help You When You Read Instructions, Pamphlets, Or Other Written Material From Your Doctor Or Pharmacy? Never [email or web address] Information not available 05/01/2020 Have You Served In The ? No [email or web address] Information not available 05/01/2020 Have You Or Anyone In Your Household Had Any Of The Following Symptoms In The Last 14 Days: Sore Throat, Cough, Chills, Body Aches For Unknown Reasons, Shortness Of Breath For Unknown Reasons, Loss Of Smell, Loss Of Taste, Fever At Or Greater Than 100 Degrees Fahrenheit? No Information not available 05/01/2020 Are You Or Anyone In Your Household A Health Care Provider Or Emergency Responder? No [email or web address] Information not available 05/01/2020 To The Best Of Your Knowledge Have You Been In Close Proximity To Any Individual Who Tested Positive For COVID-19? No [email or web address] Information not available 05/01/2020 What Was The Date Of Your Most Recent Tobacco Screening? 06/05/2022 Information not available 06/05/2022 How Many Children Do You Have? 0 [email or web address] Information not available 05/01/2020 What Is Your Parents' Marital Status? [email or web address] Information not available 05/01/2020 Do You Use Protection During Sex? Usually [email or web address] Information not available 05/01/2020 Do You Use Your Seat Belt Or Car Seat Routinely? Yes [email or web address] Information not available 05/01/2020 Seat Belts Used Routinely Yes Information not available 01/03/2015 Are You Sexually Active? Yes [email or web address] Information not available 05/01/2020 Do You Have Any Siblings? 2 Older Sister, Younger Brother [email or web address] Information not available 05/01/2020 Smoke Alarm In Home Yes Information not available 01/03/2015 Do You Have Smoke And Carbon Monoxide Detectors In Your Home? Yes [email or web address] Information not available 05/01/2020 At What Age Did You Start Smoking Tobacco? 0 Information not available 01/03/2015 Are You Passively Exposed To Smoke? No Information not available 12/28/2013 Do You Or Have You Ever Used Smokeless Tobacco? Never Used Smokeless Tobacco Information not available 09/02/2019 How Much Tobacco Do You Smoke? No Information not available 12/28/2013 What Types Of Sporting Activities Do You Participate In? School Sports; Football, Track, Baseball Information not available 06/05/2022 Do You Use Any Illicit Or Recreational Drugs? Yes Occasional Information not available 06/05/2022 Do You Use Sunscreen Routinely? No Information not available 01/03/2015 How Many Years Have You Smoked Tobacco? 0 Information not available 01/03/2015 Year In School College vinny Herr n not available 01/12/2018 Do You Or Have You Ever Used Any Other Forms Of Tobacco Or Nicotine? No Information not available 02/18/2022 Sex: Unknown Functional Status Question Answer Note LastModified by Organizat ion Details LastModified Time Are you able to walk? [email or web address] Information not available 02/18/2022 Are you able to care for yourself? No Information not available 12/28/2013 What is your exercise level? Moderate football 1 x week and basketball in good weather; gym 4 x week Information not available 06/05/2022 Mental Status None recorded. Family History Relationship Description Onset Age of this Age Resolved Age Notes LastModified by Organization Details LastModified Time Maternal Grandmother Primary malignant neoplasm of colon [email or web address] Not available 05/01 08:53:07 Paternal Grandmother Primary malignant neoplasm of lung [email or web address] Not available 05/01 08:53:07 Unspecified Relation Essential hypertension Not available 08:53:07 Unspecified Relation Diabetes mellitus [email or web address] s Not available 12/28/2013 14:58:27 Unspecified Relation Hypercholest erolemia [email or web address] s Not available 12/28/2013 14:58:27 Unspecified Relation Arthritis [email or web address] Not available 04/18 08:53:07 Mother Hypothyroidi sm [email or web address] Not available 05/01 08:53:07 Mother Rheumatoid arthritis [email or web address] s Not available 06/05/2022 14:01:30 Father Seizure 46 [email or web address] Not availabl e 05/01/2020 08:53:07 Medical History No medical history recorded. Immunizations Vaccine Type Date Status Note Provider Name and Address Organization Details Recorded Time meningococcal MCV4P 12/29/19 14 completed Not Available [facility] 06/05/2019 02:21:52 COVID-19, mRNA, LNP-S, PF, 30 mcg/0.3 mL dose 10/01/19 21 completed Haley Everardo-Jacob os, MA null, [facility] 02/18/2022 15:55:51 Tdap 05/31/19 21 completed Haley Everardo-Jacob os, MA null, [facility] 02/18/2022 15:55:52 COVID-19, mRNA, LNP-S, PF, 30 mcg/0.3 mL dose 10/24/19 21 completed Haley Everardo-Jacob os, MA null, [facility] 02/18/2022 15:55:52 meningococcal MCV4P 01/15/20 18 completed Haley Everardo-Jacob os, MA null, [facility] 02/18/2022 15:55:52 Influenza, split virus, quadrivalent, PF 01/10/20 17 cancelled patient objection Not Available [facility] 06/05/2019 02:22:07 Hep B, adolescent or pediatric 09/21/19 00 completed Not Available [facility] 11/30/2013 13:57:42 IPV 11/22/19 completed Not Available [facility] 11/30/2013 13:57:42 DTaP 11/22/19 completed Not Available [facility] 11/30/2013 13:57:42 Hib (HbOC) 11/22/19 completed Not Available [facility] 11/30/2013 13:57:42 pneumococcal conjugate PCV 7 01/28/20 completed Not Available [facility] 11/30/2013 13:57:42 IPV 02/11/20 00 completed Not Available [facility] 11/30/2013 13:57:43 Hib (HbOC) 02/11/20 00 completed Not Available [facility] 11/30/2013 13:57:43 DTaP 02/11/20 00 completed Not Available [facility] 11/30/2013 13:57:43 DTaP 04/07/20 completed Not Available [facility] 11/30/2013 13:57:43 pneumococcal conjugate PCV 7 04/07/20 00 completed Not Available [facility] 11/30/2013 13:57:43 Hib (HbOC) 04/09/20 completed Not Available [facility] 11/30/2013 13:57:43 Hep B, adolescent or pediatric 04/11/20 00 completed Not Available [facility] 11/30/2013 13:57:43 pneumococcal conjugate PCV 7 06/03/19 01 completed Not Available [facility] 11/30/2013 13:57:43 pneumococcal conjugate PCV 7 07/08/19 01 completed Not Available [facility] 11/30/2013 13:57:43 Hep B, adolescent or pediatric 07/08/19 01 completed Not Available [facility] 11/30/2013 13:57:43 varicella 10/23/19 01 completed Not Available [facility] 11/30/2013 13:57:43 MMR 01/10/20 01 completed Not Available [facility] 11/30/2013 13:57:43 Hib (HbOC) 01/10/20 01 completed Not Available [facility] 11/30/2013 13:57:43 IPV 04/07/20 01 completed Not Available [facility] 11/30/2013 13:57:43 DTaP 04/07/20 01 completed Not Available [facility] 11/30/2013 13:57:43 DTaP 10/13/19 04 completed Not Available [facility] 11/30/2013 13:57:43 IPV 10/13/19 04 completed Not Available [facility] 11/30/2013 13:57:43 MMR 10/13/19 04 completed Not Available [facility] 11/30/2013 13:57:43 Tdap 09/05/19 10 completed Not Available [facility] 11/30/2013 13:57:43 varicella 10/03/19 10 completed Not Available [facility] 11/30/2013 13:57:43 HPV, quadrivalent 12/16/19 12 completed Not Available [facility] 11/30/2013 13:57:43 HPV, quadrivalent 12/24/19 13 completed Not Available [facility] 11/30/2013 13:57:43 Meningococcal MCV4O 12/24/19 13 completed Not Available [facility] 11/30/2013 13:57:43 HPV, quadrivalent 03/03/20 13 completed Not Available [facility] 11/30/2013 13:57:43 HPV, quadrivalent 07/08/19 14 completed Not Available [facility] 11/30/2013 13:57:43 Influenza, split virus, quadrivalent, PF 06/05/19 23 completed Gonzalo Amezquita MD [address], [place], [address], [facility] 06/05/2022 14:33:29 Past Encounters Encounter ID Performer Location Encounter Start Date Encounter Closed Date Diagnosis/Indication Diagnosis SNOMED-CT Code Diagnosis ICD10 Code Diagnosis Note [id number] [facility] [id number] [facility],[address] [place] [address] 03/20/2006 00:00:00 [id number] auto[facility]Comm erce [address] [facility] [place] [address] 10/31/2005 00:00:00 [id number] auto[facility]Comm erce [address] [facility],[address] [place] [address] 10/16/2005 00:00:00 [id number] autoEComm erce [address] [facility],[address] [place] [address] 09/23/2005 00:00:00 [id number] auto[facility]Comm erce [address] [facility],[address] [place] [address] 08/14/2006 00:00:00 [id number] auto[facility]Comm erce [address] [facility],[address] [place] [address] 09/30/2006 00:00:00 [id number] auto[facility]Comm erce [address] [facility] [place] [address] 12/12/2006 00:00:00 [id number] autoEComm erce [address] [facility],[address] [place] [address] 12/15/2006 00:00:00 [id number] auto[facility]Comm erce [address] [facility],[address] [place] [address] 09/21/2007 00:00:00 [id number] auto[facility]Comm erce [address] [facility],[address] [place] [address] 03/15/2008 00:00:00 [id number] auto[facility]Comm erce [address] [facility],[address] [place] [address] 09/05/2008 00:00:00 [id number] auto[address]Comm erce [address] [place] [address] 09/04/2009 00:00:00 [id number] [address] [place] [address] 09/22/2009 00:00:00 [id number] autoEComm erce [address] [place] [address] 01/29/2010 00:00:00 [id number] autoEComm erce [address] [place] [address] 10/02/2010 00:00:00 [id number] autoEComm erce [address] [place] [address] 11/30/2010 00:00:00 [id number] autoEComm erce [address] [facility],[address] [place] [address] 03/06/2011 00:00:00 [id number] autoEComm erce [address] [facility],[address] [place] [address] 12/16/2011 00:00:00 [id number] autoEComm erce [address] [facility],[address] [place] [address] 03/03/2012 00:00:00 [id number] autoEComm erce [address] [facility],[address] [place] [address] 06/05/2012 00:00:00 [id number] autoEComm erce [address] [facility],[address] [place] [address] 12/23/2012 00:00:00 [id number] autoEComm erce [address] [facility] [place] [address] 08/10/2013 00:00:00 [id number] autoEComm erce [address] [facility] [place] [address] 10/06/2013 00:00:00 [id number] Carlton Workman MD Main Office [address] [address] [place] [address] 12/28/2013 14:36:47 12/28/2013 16:03:12 Well child [id number] Murali Blackman Main Office [address] [address] [place] [address] 01/03/2015 13:27:43 01/03/2015 14:38:57 Well child [id number] Jose Davenport MD Main Office [address] [address] [place] [address] 01/09/2016 08:53:48 01/09/2016 10:40:36 Well child 121504586 Z00.129 [id number] Carlton Workman MD Main Office [address] [address] [place] [address] 01/09/2017 10:14:34 01/09/2017 11:42:07 Well child 430634806 Z00.129 Immunization refused 275 354321 Z28.21 [id number] [facility] [address] [place] [address] 01/12/2018 13:49:20 01/12/2018 15:33:18 Adult health examination 203088993 Z00.00 Allergic rhinitis 212927 04 J30.9 prn zyrtec Impacted cerumen 3803600 6 H61.22 mild - mod, rec debrox Exposure t o sexually transmissible disorder 131698432 Z20.2 [id number] Mary RamosCharline bath Main Office [address] [address] [place] [address] 01/14/2018 14:23:28 01/14/2018 15:23:32 Requires a meningitis vaccination 700883114 Z28.3 [id number] SALLY Galarza Main Office [address] [address] [place] [address] 09/02/2019 13:41:44 09/02/2019 15:16:56 Exposure to SARS-CoV-2 129497189 Z20.828 close contact with a coworker who has tested positive, last contact was friday. Patient to quarantine / isolate x 14 days. May return to [facility] 09/16/19 if he does not have any symptoms. Should he develop sx of fever, cough, headache, sore throat, n/v/d he should contact the office amy.Handw ashing, avoid touching his face, isolate from others in the home and wear a mask. [id number] Jose Davenport MD Main Office [address] [facility] [address] [place] [address] 05/01/2020 08:44:31 05/01/2020 09:33:00 Adult health examination 771100971 Z00.00 Patient was counseled on healthy diet, exercise and nutrition due to Body mass index is 29.4 kg/m? ? ?. Vaccines: TdAP: due, patient to be called by WILBERT Dickens for [place] visit to get vaccine.In fluenza: Patient declined. Routine labs and STI pannel orderedMed ication reconciled Annual and dental exam discussed with patient as it is due.Denies depression just bored with covid per patient despite PHQ of 6 per [place] screening. Patient denies suicidal or homicidal ideation. Low back pain 763513203 M54.5 LBP with radiculopa thy on right sideAdvise d patient to stop lifting heavy object - declines needing work letterAdvi sed to continue ambulating .Will do NSAID and MSK relaxant followed by PTWeight loss advisedXR was done in January per pt no abnormalit ies. Body mass index 25-29 - overweight 545369223 Z68.29 Diet and exercise discussed Venereal d isease screening 927484866 Z11.3 Patient in agreement with STI screening Overweight 965100604 E66 .3 [id number] Micki Keller Main Office [address] [facility] [address] [place] [address] 05/31/2020 08:46:44 05/31/2020 11:47:08 Low back pain 115916816 M54.5 Patient notes good improvemen t with NSAID and MSK Relaxant, he has been doing exercises at home with good relief.XR was done in January per pt no abnormalit ies and not indicated at this time.Advis ed patient to cw not lifting heavy objectAdvi sed to continue ambulating .He was advised he can take OTC NSAID now per product label if he has flare. Advised he can go to PT to learn exercise and technique to do them at home as he did not go when referall placed last visit.Lenore reyna shirley advisedCW lower back exercises that was mailed to him in mean time. Body mass index 25-29 - overweight 784915849 Z68.29 Diet and exercise discussed Administra tion of viral vaccine 85830022 Z23 Tdap given today today 05/31/20 Overweight 428048783 E66 .3 [id number] Gonzalo Amezquita MD Main Office [address] [facility] [address] [place] [address] 02/18/2022 08:14:52 02/18/2022 16:53:44 Fatigue 63961640 R53.83 Hyperlipidemia 46107219 E78.5 Dysthymia 73237686 F34.1 Decline medication for now.He will cont. with exercises. mind full exercises and apps discussed. He is open to therapy.Re sources for therapy also discussed such as talk space, psych today and he can also reach out to insurance with list, I will mail him referral.D enies homicidal or suicidal Ideation.A ferrell if sx worse to call.Will follow up in PE. Venereal d isease screening 257433577 Z11.3 Patient in agreement with STI screening [id number] Haley mijares [place] Main Office [address] [facility] [address] [place] [address] 06/05/2022 13:43:21 06/05/2022 14:33:42 Dysthymia 85161624 F34.1 Decline medication for now.He will cont. with exercises. mind full exercises and apps discussed. He is going to meet with therapist end of month.Gabo es homicidal or suicidal Ideation.A ferrell if sx worse to call. Fatigue 40087605 R53.83 Adult heal th examination 060550391 Z00.00 Patient was counseled on healthy diet, exercise and nutrition due to Body mass index is 30.7 kg/m? ? ?. No colo or prostate CA hx?: No fhx, asymptomat ic Vaccines:T dAP: 05/31/20Zos ter rec: not [id number]: Not dueInfluen za: 06/05/21Cov id: 09/30/20, 10/23/20, bivalent advised. Routine labs today Immunizati on status reviewed. Will screen based on risk factors. Regular dental and ophtho care advised as well as seat belt and sunscreen use. Distracted driving discussed. Medication reconciled . Body mass index 30+ - obesity 324171764 Z68.30 E66.9 - Diet and exercise discussed- Patient made aware of risks of obesity- Encouraged to loose weight.- Avoid starchy and fatty food- Encouraged use of green vegetables and fruits Obesity 875874758 E66.9 Needs infl uenza immunization 010184394 Z23 Elevated blood-pressure reading without diagnosis of hypertension 873176945 R03.0 blood pressure borderline . - he is asymptomat icLife style changes discussed, wt. loss. low Na.Low sodium diet discussed Advised to keep BP daily BP log and technique counseled. script for cuff provided will follow up 6wks. [id number] Gonzalo Amezquita MD Main Office [address] [facility] [address] [facility] [place] [address] 07/17/2022 15:27:18 07/18/2022 09:05:57 Elevated blood-pressure reading without diagnosis of hypertension [id number] R03.0 blood pressure borderline . - he is asymptomat ic has not been checking consistent ly. Will have him check more frequently and follow next visit.Life style changes discussed, wt. loss.Low sodium diet discussedA dvised to keep BP daily BP log and technique counseled. 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 Cont. working with therapist. Follow up 4-6 weeks. [id number] Gonzalo Amezquita MD Main Office [address] [facility] [address] [facility] [place] [phone] 09/06/2023 09:19:33 09/06/2023 09:52:14 Injury of tendon of the rotator cuff of shoulder [id number] S46.002A Exam suggest possible rotator cuff injury.We are both in agreement to start with conservati ve therapy with PT, rest, ice, warm compress, elevation. I stared him on mobic, he is aware to take it 7 days straight with meals and the rest PRN. He was advised not to use with any other otc NSAID and to stay hydrated.I f sx not better he was advised to get xray.I will follow up in 2mo. If after 6 weeks of PT not improved will get MRI and depending on that consider refer to ortho or physiatry. Health Concerns Section Related Observation LastModified by Organization Detai ls LastModified Time None Recorded Concern Status LastModified by Organization Details LastModified Time None Recorded Advance Directives Directive N: Payers Encounter Date Sequence Insurance Name Policy Number Policy Junior Covered Member ID Junior Member ID Guarantor Name 05/31/[address] [facility] ([facility]) [id number] 3 Linette Foster [id number] Linette Bellamy 02/18/[address] [facility] ([employer] [id number] Linette Foster [id number] Linette Bellamy 06/05/[address] [facility] ([employer]) [id number] 3 Linette Foster [id number] Linette Bellamy 07/17/[address] [facility] ([employer]) [id number] 3 Linette Foster [id number] Linette Bellamy 09/06/[address] [facility] ([employer]) [id number] 3 Linette Foster [id number] Linette Bellamy Notes Date Note Type Note Provider Name and Address Organization Details Recorded Time 05/31/2020 text/html Back PainReporte d bypatient.Location:pa in radiating to the buttocks Quality:dull Severity:improving Duration:intermittent Context:unusual activity Alleviating Factors:relieved by changing position Aggravating Factors:movement/posi tioning Associated Symptoms:no fever; no weak limbs; no numbness of the legs/feet; no tingling; no incontinence; no shortness of breath Patient presents for LBP f/u notes significant improvement with medications and exercises. He did not go to PT as the co-pay was high. Micki carr [facility] [place] 06/01/2020 11:06:13 02/18/2022 text/html Anxiety/Depressi onRep orted bypatient.Quality:inc reased anxiety Severity:denies suicidal ideations; able to maintain relationships; does not interfere with activities of daily living Duration:3 months worsening but going on 1yr Context:major life stressors Modifying Factors:exercise with gym. Associated Symptoms:denies homicidal ideations; no visual/auditory hallucinations; no delusions; no shortness of breath; maintaining functionality;eating less;eating more;emotional lability;high irritability;anxiety; depression;loneliness ;restlessness/agitati on;sleep disturbances;low self-esteem;social withdrawal;stomach cramps;diarrhea;flush ing;paranoid, feeling persecutedNotes:Has had some crying spell. Gonzalo Amezquita MD [address], [phone], [facility] [place] 02/18/2022 16:41:46 06/05/2022 text/html Patient present for well adult visit Notes depression/anxiety worse, no thoughts about self harm or harming others. Plans to meet therapist end of month with [facility], next therapist at [facility] (just did intake) apt pending. Has 2 as trying to see who he works with better. OTC/Herbal supplements use: Vit C gummies. Sex hx: active, 1 f partner.STI: deniesDrug use: marijuana socially.Etoh use: socialtobacco use: deniesspf/derm: spf use advised. denies abnormal mole Dental: follows every 6mo, up to dateEye: Notes within in last 2 yrs.Diet: regular diet, no restrictions.Activity : 4 days a week, lifting. Gonzalo Amezquita MD [address], [phone], [facility] [place] [place] 06/05/2022 14:34:20 07/17/2022 text/html Anxiety/Depressi onRep orted bypatient.Notes:Notes that when he initially started lexapro his symptoms improved but now they have since worsened. He has started seeing a therapist and has a good rapport.Little possible sexual side affect with lexapro and affected concentration.Hyperte nsion F/UReported bypatient.Associated Symptoms:no dizziness; no lightheadedness; no chest pain; no shortness of breath; no palpitations; no edema; no calf pain with exertion Lifestyle:regular exercise; limiting/avoiding saltNotes:Has been checking bp inconstantly 07/11:130/69, Hr 77 07/14:128/89 HR 60 07/15:154/80 HR 72, after work. 07/1126/ HR 60 Here for follow up on mental health after being on lexapro, and for elevated bp. Gonzalo Amezquita MD [address] [address], [place], [phone], [facility] [place] 07/17/2022 18:11:11 09/06/2023 text/html Musculoskeletal PainReported bypatient.Location:pa in is not radiating; left shoulder; more right dom for sports, write with left. Severity:worsening Duration:2-3mo Timing:intermittent Context:overuse; hyperextension football. Associated Symptoms:no fever; no weak limbs; no tingling; no numbness of the legs/feet; on incontinence Patient presents for Left shoulder pain Gonzalo Amezquita MD [address] [facility] [address], [place], [phone], [facility] [place] 09/06/2023 11:09:57
== END 2024-06-17 11:54 | disposition home or self-care (01) ==
PROVIDERS: Emergency Provider Emergency Medicine
DX: M54.50 Low back pain, unspecified (principal)
CPT/HCPCS: 72100; 99282; 99283

== ENCOUNTER → 2024-06-17 10:17 | Outpatient (BNV) | payer OTHER, SELFPAY | PROVIDERS: Emergency Provider Emergency Medicine; Visit Provider Radiology Diagnostic Radiology | DX: M54.50 Low back pain, unspecified (principal) | CPT/HCPCS: 72100 ==